=== PATIENT | female | born 1950 | race American Indian/Alaskan Native ===

== ENCOUNTER → 2020-08-31 12:51 | Outpatient (BNVA) | payer MEDICARE, SELFPAY | PROVIDERS: PCP Internal Medicine; Referring Provider Internal Medicine; Visit Provider Internal Medicine | DX: I25.10 Atherosclerotic heart disease of native coronary artery without angina pectoris (principal); Z95.5 Presence of coronary angioplasty implant and graft; Z79.02 Long term (current) use of antithrombotics/antiplatelets; Z79.82 Long term (current) use of aspirin; Z79.899 Other long term (current) drug therapy | CPT/HCPCS: 99212 ==

== ENCOUNTER 2020-09-03 14:42 | Outpatient (REF) | payer MEDICARE, SELFPAY ==
[2020-09-03 16:12] LABS: Alanine Aminotransferase 17 U/L (0-31); Albumin Level 4.4 g/dL (3.5-5.0); Alkaline Phosphatase 63 U/L (39-117); Aspartate Amino Transferase 19 U/L (5-31); Bilirubin Direct 0.2 mg/dL (0.0-0.5); Bilirubin Total 0.2 mg/dL (0.0-1.0); Cholesterol 161 mg/dL; HDL Cholesterol 83 mg/dL; LDL Cholesterol Calculated 68 mg/dl; Total Protein 6.8 g/dL (6.5-8.0); Triglycerides 54 mg/dL
== END 2020-09-03 14:43 | disposition home or self-care (01) ==
LOC: HO.LAB 14:42
PROVIDERS: PCP Internal Medicine; Visit Provider Internal Medicine
DX: E78.5 Hyperlipidemia, unspecified (principal); I25.10 Atherosclerotic heart disease of native coronary artery without angina pectoris
CPT/HCPCS: 80061; 80076

== ENCOUNTER → 2021-02-22 11:08 | Outpatient (BNVA) | payer MEDICARE, SELFPAY | PROVIDERS: PCP Internal Medicine; Visit Provider Internal Medicine | DX: I25.10 Atherosclerotic heart disease of native coronary artery without angina pectoris (principal); E78.5 Hyperlipidemia, unspecified; Z95.5 Presence of coronary angioplasty implant and graft | CPT/HCPCS: 99212 ==

== ENCOUNTER → 2021-08-30 11:34 | Outpatient (BNVA) | payer MEDICARE, SELFPAY | PROVIDERS: PCP Internal Medicine; Visit Provider Internal Medicine | DX: I25.10 Atherosclerotic heart disease of native coronary artery without angina pectoris (principal); E78.5 Hyperlipidemia, unspecified; Z95.5 Presence of coronary angioplasty implant and graft | CPT/HCPCS: 93005; 99212 ==

== ENCOUNTER 2021-09-15 12:23 | Outpatient (REF) | payer MEDICARE, SELFPAY | END 2021-09-15 12:24 | disposition home or self-care (01) | LOC: HO.LAB 12:23 | PROVIDERS: PCP Internal Medicine; Visit Provider Internal Medicine | DX: Z20.822 Contact with and (suspected) exposure to COVID-19 (principal) | CPT/HCPCS: C9803; U0003; U0005 ==

== ENCOUNTER 2022-07-10 13:57 | Emergency (ER) | payer MEDICARE, SELFPAY ==
--- NOTE | ~2022-07-10 | XR_ITS ---
EXAMINATION: XR FOOT, RIGHT CLINICAL INFORMATION: Injury, pain COMPARISON: None TECHNIQUE: AP, lateral, and oblique views of the right foot. FINDINGS: The bones and soft tissues are normal. No fracture. Alignment is anatomic. Joint spaces are maintained. XR/XR foot RT 2V IMPRESSION: Normal right foot.
[2022-07-10 16:30] VITALS: BP 151/43; PULSE 72; RESP 18; TEMP 36.7; O2SAT 97; BMI 19.7
--- NOTE | 2022-07-10 17:43 | ED_ITS ---
HPI - Extremity Injury (Lower) General Chief Complaint: Extremity Injury, Lower Stated Complaint: r foot inj at home Time Seen by Provider: 07/10/22 14:43 Source: patient and family Mode of arrival: ambulatory Limitations: no limitations History of Present Illness HPI Narrative: 71-year-old female came in for evaluation of right foot pain after she dropped a can of soup on her right leg. Patient felt fine initially then later started to have pain over the right foot still able to ambulate with limping. Related Data Home Medications Medication Instructions Recorded Confirmed clonazepam 1 mg tablet mg PO 08/31/20 08/30/21 fluticasone propionate 110 inhalation 08/31/20 08/30/21 mcg/actuation HFA aerosol inhaler liothyronine 5 mcg tablet mcg PO 08/31/20 08/30/21 lubiprostone 24 mcg capsule 24 mcg PO BID 08/31/20 08/30/21 misoprostol 200 mcg tablet 400 mcg PO QID 08/31/20 08/30/21 thyroid (pork) 15 mg tablet 15 mg PO QAM 08/31/20 08/30/21 thyroid (pork) 30 mg tablet 0 mg PO 08/31/20 08/30/21 topiramate 200 mg tablet 200 mg PO BID 08/31/20 08/30/21 topiramate 50 mg tablet 50 mg PO BID 08/31/20 08/30/21 venlafaxine 150 mg 150 mg PO DAILY 08/31/20 08/30/21 capsule,extended release 24 hr venlafaxine 75 mg capsule,extended 75 mg PO DAILY 08/31/20 08/30/21 release 24 hr Previous Rx's Medication Instructions Recorded aspirin 81 mg tablet,delayed 81 mg PO DAILY #90 tabs 08/30/21 release (Enteric Coated Aspirin) rosuvastatin 20 mg tablet 20 mg PO DAILY #90 tabs 03/06/22 Allergies Allergy/AdvReac Type Severity Reaction Status Date / Time naproxen AdvReac Unknown Does not Verified 08/30/21 11:39 feel well Review of Systems Review of Systems: All other systems are reviewed and are negative Constitutional: Reports as per HPI and Reports no additional constitutional complaints Eyes: Reports as per HPI and Reports no additional eye complaints Reports system reviewed and no additional complaints, except as documented Cardiovascular: Reports as per HPI and Reports no additional cardiovascular complaints Respiratory: Reports as per HPI and Reports no additional respiratory complaints Gastrointestinal: Reports as per HPI and Reports no additional gastrointestinal complaints Genitourinary: Reports no additional female genitourinary complaints Musculoskeletal: Reports no additional musculoskeletal complaints Skin/Breast: Reports system reviewed and no additional complaints, except as docu Psychiatric: Reports no additional psychiatric complaints Endocrine: Reports no additional endocrine complaints Hematologic/Lymphatic: Reports no additional hematologic/lymphatic complaints Allergic/Immunologic: Reports no additional allergic/immunologic complaints Reports system reviewed and no additional complaints, except as documented and Reports Abnormal speech present PENDING SALE TO [facility] Past Medical History Medical History Atherosclerotic cardiovascular disease Other and unspecified hyperlipidemia Presence of stent in LAD coronary artery Surgical History History of cardiac catheterization (~05/24/20) History of fusion of cervical spine History of hand surgery History of partial hysterectomy History of total left hip replacement Family History Family History Father History of myocardial infarction Emphysema of lung Mother Emphysema of lung History of myocardial infarction Social History Social History Patient Tobacco Use Status: Former Tobacco user Quit Date: 29 yrs ago Years Smoked: 22 Advance Directives: Yes Advance Directives on File: Yes Advance Directives Date on File: 07/16/20 Physical Exam Vital Signs: Vital Signs: Last Vital Signs Temp 98.1 F 07/10/22 16:30 Pulse 72 07/10/22 16:30 Resp 18 07/10/22 16:30 BP 151/43 H 07/10/22 16:30 Pulse Ox 97 07/10/22 16:30 O2 Del Method 07/10/22 16:30 BMI result Body Mass Index 19.7 Vital signs have been reviewed as appeared to be correct. Blood pressure normal. Heart rate normal. Respiration rate normal. Temperature normal. Oxygen saturation normal. Appearance: Alert. Oriented X3. No acute distress. Head: Normal external exam. Normocephalic. Atraumatic. No Kline signs noted. No raccoon eyes noted Eyes: PERRLA. EOMI. Conjunctiva and sclera normal. Eyelids normal. ENT: TM's Normal. Pharynx normal. Uvula midline. Moist mucous membranes. No trismus noted. No drooling noted. No muffled voice noted. Neck: Normal inspection. Neck supple. FROM. No adenopathy. Thyroid Normal. No meningeal signs. No neck mass noted. CVS: Normal heart rate and rhythm. Heart sound normal. No murmurs noted. Pulses normal throughout. Respiratory: No respiratory distress. Painless inspiration. Breath sounds normal. No wheezes/rales/rhonchi noted. Chest nontender. No accessory muscle usage noted or decreased air movement noted. Abdomen: Soft and nontender. Bowel sounds normal in all 4 quadrants. No distention noted. No organomegaly noted. No visible injury noted. Back: No CVA tenderness. Full range of motion noted. Skin: Skin warm and dry. Normal skin color. Normal skin turgor. No rashes/lesions/lacerations noted. Extremities: Right foot exam, no deformity, no step-off, normal neurovascular exam with intact sensation. Neuro: Oriented X 3. Cranial nerve exam: II-XII are grossly intact No motor deficit. No sensory deficit. Reflexes normal. Course Course Course Narrative: Right foot contusion. Elevation, ice, NSAIDs. MDM - Extremity Injury (Lower) Imaging Data Right foot x-ray: Attestation: I personally reviewed and interpreted this imaging study as follows: Radiologist's impression: Normal right foot Discharge Plan Discharge Clinical Impression: Contusion of foot, right Patient Disposition: Home, Self-Care Instructions: Foot Contusion (ED) Additional Instructions: Apply ice to the right foot, elevate the right foot, use the Voltaren cream, roosevelt e ibuprofen 200 mg [id number] medication every 6 hours if needed for pain. Prescriptions: No Action rosuvastatin 20 mg tablet 20 mg PO DAILY Qty: 90 3RF venlafaxine 150 mg capsule,extended release 24hr 150 mg PO DAILY venlafaxine 75 mg capsule,extended release 24hr 75 mg PO DAILY clonazepam 1 mg tablet PO topiramate 50 mg tablet 50 mg PO BID Flovent HFA 110 mcg/actuation HFA aerosol inhaler inhalation thyroid (pork) 30 mg tablet 0 mg PO Amitiza 24 mcg capsule 24 mcg PO BID misoprostol 200 mcg tablet 400 mcg PO QID liothyronine 5 mcg tablet PO topiramate 200 mg tablet 200 mg PO BID thyroid (pork) 15 mg tablet 15 mg PO QAM aspirin [Enteric Coated Aspirin] 81 mg tablet,delayed release (DR/EC) 81 mg PO DAILY Qty: 90 4RF Referrals: Hilton Rossi MD [Primary Care Provider] -
== END 2022-07-10 17:54 | disposition home or self-care (01) ==
PROVIDERS: Emergency Provider Emergency Medicine; PCP Internal Medicine
DX: S90.31XA Contusion of right foot, initial encounter (principal); W20.8XXA Other cause of strike by thrown, projected or falling object, initial encounter; E78.5 Hyperlipidemia, unspecified; Y93.89 Activity, other specified; Y92.010 Kitchen of single-family (private) house as the place of occurrence of the external cause; Y99.9 Unspecified external cause status; Z79.02 Long term (current) use of antithrombotics/antiplatelets; Z95.5 Presence of coronary angioplasty implant and graft
CPT/HCPCS: 73620; 99282; 99283

== ENCOUNTER → 2022-08-31 11:01 | Outpatient (BNVA) | payer MEDICARE, SELFPAY | PROVIDERS: PCP Internal Medicine; Visit Provider Internal Medicine | DX: I25.10 Atherosclerotic heart disease of native coronary artery without angina pectoris (principal); E78.5 Hyperlipidemia, unspecified; Z95.5 Presence of coronary angioplasty implant and graft | CPT/HCPCS: 93005; 99212 ==

== ENCOUNTER 2022-10-02 15:25 | Outpatient (REF) | payer MEDICARE, SELFPAY ==
[2022-10-02 16:21] LABS: Blood Urea Nitrogen 17 mg/dL (9-16); Estimated Glomerular Filt Rate 48
== END 2022-10-02 15:26 | disposition home or self-care (01) ==
LOC: HO.LAB 15:25
PROVIDERS: PCP Internal Medicine; Visit Provider Otolaryngology
DX: Z01.812 Encounter for preprocedural laboratory examination (principal); H91.20 Sudden idiopathic hearing loss, unspecified ear
CPT/HCPCS: 36415; 82565; 84520

== ENCOUNTER 2022-10-16 14:13 | Outpatient (REF) | payer MEDICARE, SELFPAY ==
--- NOTE | ~2022-10-16 | MR_ITS ---
MR BRAIN WITHOUT AND WITH IV CONTRAST CLINICAL INFORMATION: Sudden hearing loss and tinnitus of the left ear. Acoustic neuroma. COMPARISON: CTA head and neck 03/28/2017. TECHNIQUE: Multiplanar, multisequence MRI of the brain was obtained before and after the intravenous administration of 5 mL Gadavist. FINDINGS: The inner ear structures including the cochlea, vestibules, and semicircular canals exhibit preserved CSF signal intensity with no pathologic enhancement. The vestibular aqueducts are not enlarged. Cranial nerves VII and VIII complexes are normal in morphology. No enhancing CP angle/retrocochlear lesion. There is no pathologic intracranial enhancement. 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 No acute infarct on diffusion-weighted imaging. No intracranial hemorrhage on the gradient series. No hydrocephalus, extra-axial surface collection, or herniation. The midline intracranial structures are normal. Cerebellar tonsils are normally positioned. Craniocervical junction is normal. Osseous marrow signal intensity remains homogeneous. No significant soft tissue abnormality is appreciated. Partially imaged ACDF changes within the upper cervical spine. MR/MR head/brain wo/w con IMPRESSION: - No retrocochlear pathology. No acute findings. - There is mild to moderate chronic microangiopathy.
== END 2022-10-16 14:14 | disposition home or self-care (01) ==
LOC: HO.MRI 14:13
PROVIDERS: Visit Provider Otolaryngology
DX: D33.3 Benign neoplasm of cranial nerves (principal); H91.22 Sudden idiopathic hearing loss, left ear; H93.12 Tinnitus, left ear
CPT/HCPCS: 70553; A9585

== ENCOUNTER 2023-09-05 11:12 | Outpatient (AMB) | payer MEDICARE, SELFPAY ==
--- NOTE | 2023-09-05 11:25 | A.OFFVIS_ITS ---
Intake Vital Signs 09/05/23 11:27 Height 5 ft 4 in Weight 114 lb 10.246 oz BMI 19.7 BP 130/70 Blood Pressure Location Lt brachial Position Sitting Pulse 79 Intake Visit Reasons: 1 year follow up Intake Note: 1 year follow up w/ EKG Communications Director Required: No Accompanied by: Self / Same As Patient Allergies naproxen Adverse Reaction (Unknown, Verified 09/05/23 11:25) Does not feel well Medication List - Last Reconciled 09/05/23 by Raghu Scott MD aspirin (Enteric Coated Aspirin) 81 mg PO DAILY clonazepam 1 mg PO fluticasone propionate 110 mcg/actuation inhalation liothyronine 5 mcg PO lubiprostone 24 mcg PO BID rosuvastatin 20 mg PO DAILY thyroid (pork) 15 mg PO QAM thyroid (pork) 30 mg PO topiramate 50 mg PO BID topiramate 200 mg PO BID venlafaxine ER 150 mg PO DAILY venlafaxine ER 75 mg PO DAILY HPI HPI Comments History of Present Illness Details Maggy returns for follow-up regarding coronary disease. In 2019, she was admitted for chest discomfort that felt like heaviness in the front of the chest. EKG showed T inversions across the anterior leads, but troponins were unremarkable. Then underwent cardiac catheterization showing significant proximal LAD disease. Underwent stenting of the same. Strong family history of cardiac disease. Her sister has had bypass surgery in her 40s. Overall, no new issues. No anginal-type symptoms or in fact anything cardiac sounding. [facility] Medical History Atherosclerotic cardiovascular disease Other and unspecified hyperlipidemia Presence of stent in LAD coronary artery Surgical History History of cardiac catheterization (~05/24/20) History of total left hip replacement History of fusion of cervical spine History of partial hysterectomy History of hand surgery Family History Father History of myocardial infarction Emphysema of lung Mother Emphysema of lung History of myocardial infarction Patient Tobacco Use Status: Former Tobacco user Quit Date: 29 yrs ago Years Smoked: 22 Advance Directives Date on File: 07/16/20 Review of Systems Const Denies weakness ENT Denies dizziness Card Denies chest pain, Denies chest pain with activity, Denies syncope, Denies rapid heart rate, Denies pedal edema, Denies edema, Denies leg edema, Denies lightheadedness, Denies palpitations, Denies dyspnea, Denies dyspnea on exertion and Denies orthopnea Resp Denies cough, Denies dyspnea and Denies dyspnea on exertion GI Denies hematochezia and Denies change in stool character Musc Denies abnormal gait, Denies muscle cramps, Denies muscle weakness, Denies numbness, Denies radiating pain into limb and Denies tingling Neuro Denies abnormal gait, Denies dizziness, Denies syncope, Denies numbness, Denies tingling and Denies weakness Endo Denies palpitations Physical Exam Vital Signs: Last Vital Signs Pulse 79 09/05/23 11:27 BP 130/70 09/05/23 11:27 BMI result Body Mass Index 19.7 Const General: comfortable and no acute distress Orientation/consciousness: patient oriented x3 HEENT Other: Unremarkable Head: Yes normal to inspection Neck Neck: Yes normal visual inspection Chest Chest palpation & inspection: normal inspection of the chest Resp Auscultation: clear to auscultation bilaterally Cardio Palpation: normal PMI Heart sounds: S1 normal heart sound present, S2 normal heart sound present, no gallops, no murmurs and no rubs GI Palpation (GI): Soft to palpation Back/Spine/Pelvis Other: unremarkable Skin General skin exam: no rashes or lesions noted Neuro General: patient oriented x3 Extrem General: Yes normal to inspection Psych Mental Status: mental status grossly normal Office Procedures EKG Details: EKG with sinus rhythm at 79/Min; cannot exclude old septal infarct but could be from body habitus; nonspecific ST-T changes; [place] [id number], Complete Assessment & Plan Assessment & Plan (1) Atherosclerotic cardiovascular disease: Code(s): I25.10 - Atherosclerotic heart disease of [place] coronary artery without angina pectoris (2) Presence of stent in LAD coronary artery: Code(s): Z95.5 - Presence of coronary angioplasty implant and graft (3) Other and unspecified hyperlipidemia: Code(s): E78.5 - Hyperlipidemia, unspecified Plan Cardiac catheterization from 05/2020 showed 90% stenosis in the proximal LAD, s/p WANG. Continue aspirin indefinitely. Continue statins. Last couple of LDLs are in the 70s and 90s. Triglycerides 80s and 90s. Coding Level of Care Code Est Pt Level 4 (11550) Diagnoses Atherosclerotic cardiovascular disease I25.10 Presence of stent in LAD coronary artery Z95.5 Other and unspecified hyperlipidemia E78.5 CPT Codes EKG - CPT: 79869-[id number], Complete ([id number])
[2023-09-05 11:27] VITALS: BP 130/70; PULSE 79; BMI 19.7
== END 2023-09-05 11:43 | disposition home or self-care (01) ==
PROVIDERS: Visit Provider Internal Medicine
DX: I25.10 Atherosclerotic heart disease of native coronary artery without angina pectoris (principal); Z95.5 Presence of coronary angioplasty implant and graft; E78.5 Hyperlipidemia, unspecified
CPT/HCPCS: 93010; 99214

== ENCOUNTER → 2023-09-05 11:12 | Outpatient (BNVA) | payer MEDICARE, SELFPAY | PROVIDERS: Visit Provider Internal Medicine | DX: I25.10 Atherosclerotic heart disease of native coronary artery without angina pectoris (principal); I10 Essential (primary) hypertension; E78.5 Hyperlipidemia, unspecified; Z98.890 Other specified postprocedural states; Z95.5 Presence of coronary angioplasty implant and graft | CPT/HCPCS: 93005; 99212 ==

== ENCOUNTER 2024-09-01 10:35 | Outpatient (AMB) | payer MEDICARE, SELFPAY ==
[2024-09-01 10:50] VITALS: BP 120/60; PULSE 69; BMI 20.4
--- NOTE | 2024-09-01 10:50 | A.OFFVIS_ITS ---
Vital Signs 09/01/24 10:50 Height 5 ft 4 in Weight 119 lb 0.794 oz BMI 20.4 BP 120/60 Blood Pressure Location Lt brachial Position Sitting Pulse 69 Pulse Source Monitor Intake Visit Reasons: 1 yr fu Allergies naproxen Adverse Reaction (Unknown, Verified 09/05/23 11:25) Does not feel well Medication List - Last Reconciled 09/01/24 by Raghu Scott MD aspirin (Enteric Coated Aspirin) 81 mg PO DAILY clonazepam 1 mg PO fluticasone propionate 110 mcg/actuation inhalation liothyronine 5 mcg PO lubiprostone 24 mcg PO BID rosuvastatin 20 mg PO DAILY thyroid (pork) 15 mg PO QAM thyroid (pork) 30 mg PO topiramate 50 mg PO BID topiramate 200 mg PO BID venlafaxine ER 150 mg PO DAILY venlafaxine ER 75 mg PO DAILY HPI Comments Details: Maggy returns for follow-up regarding coronary disease. In 2019, she was admitted for chest discomfort that felt like heaviness in the front of the chest. EKG showed T inversions across the anterior leads, but troponins were unremarkable. Then underwent cardiac catheterization showing sig nificant proximal LAD disease. Underwent stenting of the same. Strong family history of cardiac disease. Her sister has had bypass surgery in her 40s. She states she is noticing some shortness of breath with activity but otherwise no angina or anything else. It seems that she gets lung CT scans because of lung nodule and that had reported coronary calcification and she is worried about that. [facility] Medical History Atherosclerotic cardiovascular disease Other and unspecified hyperlipidemia Presence of stent in LAD coronary artery Surgical History History of cardiac catheterization (~05/24/20) History of total left hip replacement History of fusion of cervical spine History of partial hysterectomy History of hand surgery Family History (Updated 09/01/24 @ 11:08 by Linda Gonzalez) Father History of myocardial infarction Emphysema of lung Heart attack Mother Emphysema of lung History of myocardial infarction Heart attack Social History Patient Tobacco Use Status: Former Tobacco user Years Smoked: 22 Advance Directives Date on File: 07/16/20 Review of Systems Const Denies weakness ENT Denies dizziness Card Denies chest pain, Denies chest pain with activity, Denies syncope, Denies rapid heart rate, Denies pedal edema, Denies edema, Denies leg edema, Denies lightheadedness, Denies palpitations, Denies dyspnea, Denies dyspnea on exertion and Denies orthopnea Resp Denies cough, Denies dyspnea and Denies dyspnea on exertion GI Denies hematochezia and Denies change in stool character Musc Denies abnormal gait, Denies muscle cramps, Denies muscle weakness, Denies numbness, Denies radiating pain into limb and Denies tingling Neuro Denies abnormal gait, Denies dizziness, Denies syncope, Denies numbness, Denies tingling and Denies weakness Endo Denies palpitations Physical Exam Vital Signs: Last Vital Signs Pulse 69 09/01/24 10:50 BP 120/60 09/01/24 10:50 BMI result Body Mass Index 20.4 Const General: comfortable and no acute distress Orientation/consciousness: patient oriented x3 HEENT Other: Unremarkable Head: Yes normal to inspection Neck Neck: Yes normal visual inspection Chest Chest palpation & inspection: normal inspection of the chest Resp Auscultation: clear to auscultation bilaterally Cardio Palpation: normal PMI Heart sounds: S1 normal heart sound present, S2 normal heart sound present, no gallops, no murmurs and no rubs GI Palpation (GI): Soft to palpation Back/Spine/Pelvis Other: unremarkable Skin General skin exam: no rashes or lesions noted Neuro General: patient oriented x3 Extrem General: Yes normal to inspection Psych Mental Status: mental status grossly normal Office Procedures EKG Details: EKG with underlying sinus rhythm at 69/Min; can not exclude old septal infarct but could be from body habitus; nonspecific ST-T changes in the inferior and anterolateral leads. Overall, similar to prior. [id number], Complete Assessment & Plan Assessment & Plan (1) Atherosclerotic cardiovascular disease: Code(s): I25.10 - Atherosclerotic heart disease of [place] coronary artery without angina pectoris Category: Medical (2) Presence of stent in LAD coronary artery: Code(s): Z95.5 - Presence of coronary angioplasty implant and graft Category: Medical (3) Other and unspecified hyperlipidemia: Code(s): E78.5 - Hyperlipidemia, unspecified Category: Medical Plan Cardiac catheterization from 05/2020 showed 90% stenosis in the proximal LAD, s/p WANG. In the lung CT scan, mention of severe coronary artery calcification but suspect some of this is probably from a coronary stenting. Clinically, she does not have any clear-cut angina. Describes some shortness of breath which could be rather Pulmonary. We will plan on an echocardiogram and stress test for further evaluation. Reassured her as much about this CT scan finding towards satisfaction. With regard to medications, continue aspirin. She remains on statins. Check lipids. Previously, lipids in the 70s and 90s. Triglycerides, 80s and 90s. Follow-up in 3 months. Orders: Orders CA echo transthoracic complete Today I25.10 - Atherosclerotic heart disease of [place] coronary artery without angina pectoris Lipid Panel Today E78.5 - Hyperlipidemia, unspecified, I25.10 - Atherosclerotic heart disease of [place] coronary artery without angina pectoris Liver Panel Today I25.10 - Atherosclerotic heart disease of [place] coronary artery without angina pectoris CA echo stress exercise Today I25.10 - Atherosclerotic heart disease of [place] coronary artery without angina pectoris Coding Level of Care Code Est Pt Level 4 (97537) Diagnoses Atherosclerotic cardiovascular disease I25.10 Presence of stent in LAD coronary artery Z95.5 Other and unspecified hyperlipidemia E78.5 CPT Codes EKG - CPT: 63892-[id number], Complete ([id number])
== END 2024-09-01 11:29 | disposition home or self-care (01) ==
PROVIDERS: PCP Internal Medicine; Visit Provider Internal Medicine
DX: I25.10 Atherosclerotic heart disease of native coronary artery without angina pectoris (principal); Z95.5 Presence of coronary angioplasty implant and graft; E78.5 Hyperlipidemia, unspecified
CPT/HCPCS: 93010; 99214

== ENCOUNTER → 2024-09-01 10:35 | Outpatient (BNVA) | payer MEDICARE, SELFPAY | PROVIDERS: PCP Internal Medicine; Visit Provider Internal Medicine | DX: I25.10 Atherosclerotic heart disease of native coronary artery without angina pectoris (principal); E78.5 Hyperlipidemia, unspecified; Z95.5 Presence of coronary angioplasty implant and graft; Z87.891 Personal history of nicotine dependence | CPT/HCPCS: 93005; 99212 ==

== ENCOUNTER → 2024-10-28 11:04 | Outpatient (REF) | payer MEDICARE, SELFPAY ==
--- NOTE | 2024-10-28 11:07 | CA_ITS ---
Acquisition Time: 2024-10-28 11:33:35 Total Exercise Time: 00:07:10 Test Indications: CAD Medications: SEE H&P Protocol: TRISTEN Max HR: 141 BPM 94% of Pred: 149 BPM Max BP: 170/60 mmHG Max Work Load: 8.8 METS Exercise Stress Test with exercise 7 mins 10 secs of Tristen Protocol, achieving 87% MPHR, with reports of 6/10 chest heaviness with mild SOB that improved slowly in recovery, with isolated PACs, with normotensive response to exercise. With horizontal ST depression inferiorly and anterolaterally meeting criteria for ischemia. Echo images were obtained by tech at rest and post peak exercise. Definity contrast utilized. ST segments improved in recovery. Pt feeling back to baseline. Test reviewed with Dr. Scott. Referred By: Raghu Scott Electronically Signed By: Elder Marquez
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
== END ==
LOC: HO.CARD 11:04
PROVIDERS: PCP Internal Medicine; Visit Provider Internal Medicine
DX: I25.10 Atherosclerotic heart disease of native coronary artery without angina pectoris (principal)
CPT/HCPCS: 93350; Q9957

== ENCOUNTER → 2024-10-28 11:07 | Outpatient (BNV) | payer MEDICARE, SELFPAY | PROVIDERS: PCP Internal Medicine | DX: I24.9 Acute ischemic heart disease, unspecified (principal); I49.1 Atrial premature depolarization | CPT/HCPCS: 93016; 93018; 93350; 93352 ==

== ENCOUNTER 2024-11-17 15:14 | Outpatient (REF) | payer MEDICARE, SELFPAY ==
[2024-11-17 15:42] LABS: Hematocrit 40.3 % (37.0-47.0); Hemoglobin 13.3 g/dl (12.0-16.0); Mean Corpuscular Hemoglobin 29.9 pg (27.0-33.0); Mean Corpuscular Volume 90.6 fL (80.0-98.0); Mean Platelet Volume 12.1 fL (9.4-12.3); Platelet Count 189 X10*3/uL (160-400); Red Blood Count 4.45 X10*6/uL (4.20-5.50); White Blood Count 5.6 X10*3/uL (4.8-10.8)
[2024-11-17 15:49] LABS: INTERNATIONAL NORM RATIO 0.9 (0.9-1.1); Prothrombin Time 10.7 SEC (10.9-12.4)
[2024-11-17 16:36] LABS: Alanine Aminotransferase 18 U/L (0-31); Albumin Level 4.1 g/dL (3.5-5.0); Alkaline Phosphatase 56 U/L (39-117); Anion Gap 8 (12-20); Aspartate Amino Transferase 21 U/L (5-31); Bilirubin Direct < 0.2 mg/dL (0.0-0.5); Bilirubin Total 0.2 mg/dL (0.0-1.0); Blood Urea Nitrogen 18 mg/dL (9-16); Calcium 9.1 mg/dL (8.4-10.2); Carbon Dioxide 22 mmol/L (22-29); Chloride 114 mmol/L (96-108); Cholesterol 178 mg/dL (<200); Estimated Glomerular Filt Rate > 60; Glucose Random 81 mg/dL (60-115); HDL Cholesterol 76 mg/dL (>40); LDL Cholesterol Calculated 85 mg/dL (<100); Potassium 4.4 mmol/L (3.3-5.1); Sodium 140 mmol/L (135-145); Triglycerides 86 mg/dL (<150)
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
--- OUTSIDE RECORDS SUMMARY | 2024-11-17 16:45 | XMS_ITS | Clinical Summary ---
Author Organization [facility] [address] [facility] Address [address] [place] [address] Phone Care Team Providers Care Echocardiographer Name Role Phone Hilton Rossi MD Primary Care Provider [phone] Allergies Active Allergy Reactions Criticality Noted Date Comments Allerg Xt,D.Farinae-D.Pteronys 09/09/2024 Egg Derived Headache 11/29/2010 Milk Containing Products (Dairy) Diarrhea 11/29/2010 Milk Protein Hydrolysates Other Other 09/09/2024 Medications Medication Sig Dispensed Refills Start Date End Date Status lidocaine/me-preethi/me nthol/camph (CBD-KINGS WITH LIDOCAINE TOP) CBD oil, Refills 0, Maintenance, 11/18/18 11:16:42 EST, Compound 11/18/2018 Active ketoconazole (NIZORAL) 2 % shampoo LATHER INTO AFFECTED AREAS ON SCALP AND FACE EVERY DAY FOR 1-2 WEEKS, THEN USE 2-3 TIMES A WEEK FOR MAINTENANCE Active clonazePAM (KlonoPIN) 1 mg tablet Take 1 tablet (1 mg total) by mouth. 04/21/2024 Active aspirin 81 mg chewable tablet Chew 1 tablet (81 mg total). 05/25/2020 Active naltrexone 1.5 mg capsule 1.5 mg. 01/04/2024 Active lubiprostone (AMITIZA) 24 mcg capsule Take 1 capsule (24 mcg total) by mouth 2 times daily. 05/26/2019 Active liothyronine (CYTOMEL) 5 mcg tablet TAKE 1 TABLET BY MOUTH EVERY MORNING AND 1 EVERY EVENING Active docusate sodium (Colace) 100 mg capsule Take 1 capsule (100 mg total) by mouth. 02/10/2023 Active topiramate (TOPAMAX) 200 mg tablet Take 1 tablet (200 mg total) by mouth 2 (two) times a day. Active venlafaxine (EFFEXOR) 100 mg tablet Take 1 tablet (100 mg total) by mouth 2 (two) times a day. Active venlafaxine (EFFEXOR) 25 mg tablet Take 1 tablet (25 mg total) by mouth 2 (two) times a day. Active rosuvastatin (CRESTOR) 20 mg tablet Take 1 tablet (20 mg total) by mouth 1 (one) time each day. Active miSOPROStoL (CYTOTEC) 200 mcg tabletIndications:I rritable bowel syndrome with both constipation and diarrhea Take 1 tablet (200 mcg total) by mouth 4 (four) times a day. 120 each 5 09/10/2024 03/09/2025 Active Active Problems Problem Noted Date Diagnosed Date Rectal prolapse 09/04/2024 Irritable bowel syndrome (IBS) 09/04/2024 Hx of colonic polyp 09/04/2024 Hyperlipidemia Hypothyroid Osteoarthritis Encounters Date Type Department Care Team Description 09/10/2024 Telephone Gastroenterology - [address] [phone] [place] 09/09/2024 2:45 PM EST Office Visit Gastroenterology - [address] [phone] Murali Boyd MD Rectal prolapse (Primary Dx); Irritable bowel syndrome with both constipation and diarrhea; Hx of colonic polyp from Last 3 Months Surgical History Surgery Date Site/Laterality Comments HYSTERECTOMY DELORME PROCEDURE FOR RECTAL PROLAPSE Medical History Medical History Date Comments Hyperlipidemia Hypothyroid Osteoarthritis Social History Tobacco Use Types Packs/Day Years Used Date Smoking Tobacco: Former Cigarettes Tobacco Cessation:Counseling Given: Not Answered Alcohol Use Standard Drinks/Week Comments Not Currently 0 (1 standard drink = 0.6 oz pur e alcohol) none Sex and Gender Information Value Date Recorded Sex Assigned at Not on file Gender Identity Not on file Sexual Orientation Not on file Job Start Date Occupation Industry Not on file Not on file Not on file Obstetrics History Last Filed Vital Signs Vital Sign Reading Time Taken Comments Blood Pressure - - Pulse - - Temperature - - Respiratory Rate - - Oxygen Saturation - - Inhaled Oxygen Concentration - - Weight 53.1 kg (117 lb) 09/09/2024 2:31 PM EST Height 162.6 cm (5' 4 ) 09/09/2024 2:31 PM EST Body Mass Index 20.08 09/09/2024 2:31 PM EST Plan of Treatment Health Maintenance Due Date Last Done Comments Breast Cancer Screening 1950 Hepatitis A Vaccines (1 of 2 - Risk 2-dose series) 1971 Cholesterol Screening (Lipid Panel) 11/13/2023 Colorectal Cancer Screening: Colonoscopy 11/13/2023 Depression Screening 11/13/2023 Falls Risk Assessment 11/13/2023 Hepatitis C Screening 11/13/2023 Medicare Annual Wellness Visit 11/13/2023 Osteoporosis Screening (Bone Density Screening) 11/13/2023 Social Influencers of Health Screening 11/13/2023 COVID-19 Vaccine ( season) 2024 08/26/2022, 05/30/2022, 09/27/2021, Additional history exists Influenza Vaccine (#1) 2024 , 08/12/2022, 07/05/2021, Additional history exists Hypertension/CHF/CAD Annual BMP Blood Test 09/10/2024 DTaP,Tdap,and Td Vaccines (2 - Td or Tdap) 07/13/2027 07/13/2017 Zoster Vaccines Completed 06/16/2019, 08/16, 05/19/2018, Additional history exists Pneumococcal Vaccine: 65+ Years Completed 06/11/2020, 05/19/2018, 07/13/2017, Additional history exists RSV Immunization Patients 60+ Years Old Completed 03/01/2024 HIB Vaccines Aged Out No longer eligi ble based on patient's age to complete this topic HPV Vaccines Aged Out No longer eligi ble based on patient's age to complete this topic Hepatitis B Vaccines Aged Out No long er eligible based on patient's age to complete this topic IPV Vaccines Aged Out No longer eligi ble based on patient's age to complete this topic MMR Vaccines Aged Out No longer eligi ble based on patient's age to complete this topic Meningococcal ACWY Vaccine Aged Out N o longer eligible based on patient's age to complete this topic RSV Immunization Patients Under 20 months Aged Out No longer eligible based on patient's age to complete this topic Varicella Vaccines Aged Out No longer eligible based on patient's age to complete this topic Care Teams Echocardiographer Relationship Specialty Start Date End Date Hilton Rossi MD [address] [place] [place] [phone] PCP - General Internal Medicine 08/07/24
== END 2024-11-17 15:15 | disposition home or self-care (01) ==
LOC: HO.LAB 15:14
PROVIDERS: PCP Internal Medicine; Visit Provider Internal Medicine
DX: R94.39 Abnormal result of other cardiovascular function study (principal); E78.5 Hyperlipidemia, unspecified; I25.10 Atherosclerotic heart disease of native coronary artery without angina pectoris
CPT/HCPCS: 36415; 80048; 80061; 80076; 85027; 85610

== ENCOUNTER 2024-12-23 12:49 | Outpatient (AMB) | payer MEDICARE, SELFPAY ==
--- NOTE | 2024-12-23 13:06 | A.OFFVIS_ITS ---
Vital Signs 12/23/24 13:10 Height 5 ft 4 in Weight 114 lb 10.246 oz BMI 19.7 BP 118/58 L Blood Pressure Location Lt brachial Position Sitting Pulse 70 Pulse Source Pulse Oximeter Intake Visit Reasons: 3m/ stress echo/ echo Allergies naproxen Adverse Reaction (Unknown, Verified 09/05/23 11:25) Does not feel well Medication List - Last Reconciled 12/23/24 by Raghu Scott MD aspirin (Enteric Coated Aspirin) 81 mg PO DAILY clonazepam 1 mg PO fluticasone propionate 110 mcg/actuation inhalation liothyronine 5 mcg PO lubiprostone 24 mcg PO BID rosuvastatin 20 mg PO DAILY thyroid (pork) 15 mg PO QAM ticagrelor (Brilinta) 90 mg PO BID topiramate 50 mg PO BID topiramate 200 mg PO BID venlafaxine ER 150 mg PO DAILY venlafaxine ER 75 mg PO DAILY HPI Comments Details: Maggy returns for follow-up regarding coronary disease. In 2019, she was admitted for chest discomfort that felt like heaviness in the front of the chest. EKG showed T inversions across the anterior leads, but troponins were unremarkable. Then underwent cardiac catheterization showing significant proximal LAD disease. Underwent stenting of the same. Strong family history of cardiac disease. Her sister has had bypass surgery in her 40s. In the recent chest CT scan performed for lung nodule, there was reported coronary calcification on the patient was concern. That led to further workup with a stress test which was abnormal and then diagnostic catheterization. She underwent stenting of the ramus. Overall, she feels good. No new concerns. [facility] Medical History Atherosclerotic cardiovascular disease Other and unspecified hyperlipidemia Presence of stent in LAD coronary artery Surgical History History of cardiac catheterization (~05/24/20) History of total left hip replacement History of fusion of cervical spine History of partial hysterectomy History of hand surgery Family History (Updated 09/01/24 @ 11:08 by Linda Gonzalez) Father History of myocardial infarction Emphysema of lung Heart attack Mother Emphysema of lung History of myocardial infarction Heart attack Social History Patient Tobacco Use Status: Former Tobacco user Years Smoked: 22 Advance Directives Date on File: 07/16/20 Review of Systems Const Denies weakness ENT Denies dizziness Card Denies chest pain, Denies chest pain with activity, Denies syncope, Denies rapid heart rate, Denies pedal edema, Denies edema, Denies leg edema, Denies lighthea dedness, Denies palpitations, Denies dyspnea, Denies dyspnea on exertion and Denies orthopnea Resp Denies cough, Denies dyspnea and Denies dyspnea on exertion GI Denies hematochezia and Denies change in stool character Musc Denies abnormal gait, Denies muscle cramps, Denies muscle weakness, Denies numbness, Denies radiating pain into limb and Denies tingling Neuro Denies abnormal gait, Denies dizziness, Denies syncope, Denies numbness, Denies tingling and Denies weakness Endo Denies palpitations Physical Exam Vital Signs: Last Vital Signs Pulse 70 12/23/24 13:10 BP 118/58 L 12/23/24 13:10 BMI result Body Mass Index 19.7 Const General: comfortable and no acute distress Orientation/consciousness: patient oriented x3 HEENT Other: Unremarkable Head: Yes normal to inspection Neck Neck: Yes normal visual inspection Chest Chest palpation & inspection: normal inspection of the chest Resp Auscultation: clear to auscultation bilaterally Cardio Palpation: normal PMI Heart sounds: S1 normal heart sound present, S2 normal heart sound present, no gallops, no murmurs and no rubs GI Palpation (GI): Soft to palpation Back/Spine/Pelvis Other: unremarkable Skin General skin exam: no rashes or lesions noted Neuro General: patient oriented x3 Extrem General: Yes normal to inspection Psych Mental Status: mental status grossly normal Assessment & Plan Assessment & Plan (1) Atherosclerotic cardiovascular disease: Code(s): I25.10 - Atherosclerotic heart disease of sun'aq coronary artery without angina pectoris Category: Medical (2) Other and unspecified hyperlipidemia: Code(s): E78.5 - Hyperlipidemia, unspecified Category: Medical Plan Cardiac catheterization from 05/2020 showed 90% stenosis in the proximal LAD, s/p WANG. Exercise stress echocardiogram was abnormal with chest discomfort, EKG changes and echocardiographic findings. Repeat cardiac catheterization from 11/2024-patent proximal LAD stent with mild InStent restenosis. Severe proximal ramus stenosis, status post PCI. Overall, continue treatment for stable coronary disease. Aspirin long-term. Brilinta for one year. It seems there is some interaction between Brilinta/rosuvastatin. Hence switch to atorvastatin. Cardiac rehabilitation. Follow-up in 4 months. Orders: Orders Cardiac Rehab Today Z95.5 - Presence of coronary angioplasty implant and graft Medications: New atorvastatin (Lipitor) 40 mg PO QPM 90 tabs 3RF ticagrelor (Brilinta) 90 mg PO BID 180 tabs 3RF 90 days Discontinued rosuvastatin Discontinued Reason: Doctor's Order 20 mg PO DAILY 90 tabs 3RF Patient Instructions: I explained to the patient the importance of continuing with Brilinta and the rationale for switching to atorvastatin due to drug interaction concerns. We discussed the minimal risk of statins causing diabetes in context with her family history and emphasized the overall benefit in reducing cardiovascular events. Recommendations were made to start cardiac rehabilitation for structured exercise. She has been instructed to monitor for any new or worsening chest pain and contact our office immediately if they occur. I reassured her regarding her normal blood glucose levels. All questions were addressed, and the patient consented to the outlined plan and changes. - Continue with Brilinta as prescribed. - Switch from rosuvastatin to atorvastatin; take as directed. - Begin cardiac rehabilitation at the designated facility. - Monitor for any chest pain or discomfort and seek medical care immediately if symptoms arise. - Continue taking baby aspirin as previously directed. - Consult us if you have any questions or concerns regarding your medications or symptoms. Coding Level of Care Code Est Pt Level 4 (19910) Diagnoses Atherosclerotic cardiovascular disease I25.10 Other and unspecified hyperlipidemia E78.5
[2024-12-23 13:10] VITALS: BP 118/58; PULSE 70; BMI 19.7
--- OUTSIDE RECORDS SUMMARY | 2024-12-23 15:23 | XMS_ITS | Continuity of Care Document ---
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 [id number] Surgery Radial Cath Approach Discharge Instructions ?? 278 Radial Cath Approach Discharge Instructions ?? Activity Take it easy the rest of the day. Limit your activity on the affected side.?? Act as if your arm is broken for 24 hours. No lifting with affected arm for 24 hours. No pushing or pulling with the affected arm. Do not reach or lift with the affected arm. Do not place excessive pressure on the wrist. ?? Precautions Due to intravenous sedation: It is recommended that someone stay with you for the first night after your procedure. Do not drive or operate hazardous machinery for 24 hours. Do not make legal decisions for 24 hours. Avoid alcohol for 24 hours. Unless directed otherwise, keep yourself hydrated. ?? Dressing/Incision Care You may remove the dressing 24 hours after your procedure. Replace with band aid for an additional 24 hours. You may shower and cleanse the site with soap & water then pat dry. Avoid submersion of site in water x 5 days. Cover the with a clean band aid daily until site is healed. If the band aid becomes soiled, replacewith a clean new one. Do not apply any ointments, lotions, gels or powders to the puncture site. ?? When to contact your doctor If any of the following signs of infection occur: Fever greater than 100 degrees F Increased pain Drainage, redness or warmth at puncture site Tingling of the fingers and hand that last longer than 3 days Slight bubble of blood or bleeding from site: apply manual pressure and notify your doctor ?? Emergency situations: Bleeding from the site that will not stop: apply manual pressure and notify your doctor Profuse bleeding streaming from the puncture site: Apply manual pressure and notify your doctor immediately If your hand becomes bluish, cold to the touch, or painful, notify your doctor immediately or go toEmergency Department. For these emergent situations: If unable to contact your physician, call 911. ?? * Lucie Lopez RN: PERFORM Event Display: Patient Education Leaflets Authored Date: [id number] Procedural Sedation ?? 60750 Procedural Sedation Procedural sedation is medicine to ease discomfort, pain, and anxiety during a procedure. The medicine is often given through an IV (intravenous) line in your arm or hand. In some cases, the medicinemay be taken by mouth or inhaled. While you are under sedation, you will likely be awake. But you may not remember it afterward. Why procedural sedation is used Sedation is used for many types of procedures. The goal is to reduce pain, anxiety, and stressful memories of a procedure. It can help your healthcare provider treat you. For example, having a brokenbone fixed may be easier if you feel relaxed. This type of sedation is used only for short, basic procedures. It's not used for complex surgery. Some procedures that use this type of sedation include: ??? Dental surgery ??? Breast biopsy, to take a sample of breast tissue ??? Endoscopy, to look at gastrointestinal problems ??? Bronchoscopy, tocheck for lung problems ??? Bone or joint realignment, to fix a broken bone or dislocated joint ???Minor foot or skin surgery ??? Electrical cardioversion, to restore a normal heart rhythm ??? Lumbar puncture, to check for neurological disease ?? Risks of procedural sedation Risks and possible side effects include: ??? Headache ??? Nausea and vomiting ??? Bad memories of the procedure ??? Slowed breathing ??? Changes in heart rate and blood pressure (rare) ??? Inhalation of stomach contents into your lungs (rare) Side effects will likely go away shortly after the procedure. Your healthcare team will watch your heart rate and breathing during and after your sedation. This is to help prevent problems. Your own risks may vary. They can be based on your age and your overall health. They also depend onthe type of sedation you are given. Talk with your healthcare provider about the risks that apply most to you. ?? Getting ready for procedural sedation Talk with your provider about how to get ready for your procedure. Tell them about all the medicines you take. This includes wyon-dxv-umoabts medicines, such as ibuprofen. It also includes vitamins, herbs, and other supplements. You may need to stop taking some medicines before the procedure, such as blood thinners and aspirin. If you smoke, you should stop. This is to lessen the chance of a lungproblem. Talk with your provider if you need help to stop smoking. Tell your provider if you: ??? Have had any problems in the past with sedation or anesthesia ??? Have had any recent changes in your health, such as an infection or fever ??? Are or think you could be Also: ??? Follow any directions you are given for not eating or drinking before procedure. ??? Ask a trusted adult to take you home after the procedure. You can???t drive on the day you have sedation. ??? Ask a trusted adult to stay with you for a few hours while you recover. ??? Don't make any important decisions, such as financial or legal, on the day after you have sedation. ??? Follow all other instructions from your provider. ?? During your procedural sedation You may have your procedure in a hospital or a clinic. Sedation is done by a trained healthcare provider. In general, you can expect the following: ??? You will be given medicine through an IV line in your arm or hand. Or you may get a shot or take it by mouth. Or you may inhale it through a mask. ??? If you have medicine through an IV, you may feel the effects very quickly. You will start to feel relaxed and drowsy. ??? During the procedure, your heart rate, breathing, and blood pressure will be closely watched. Your breathing and blood pressure may decrease a little. But you will likely notneed help with your breathing. You may get a little extra oxygen. This is done through a mask or some soft plastic prongs under your nose. ??? You will likely be awake the whole time. If you do fall asleep, you should be easy to wake up, if needed. You should feel little or no pain. ??? When your procedure is over, the sedative medicine will be stopped. ?? After your procedural sedation You will start to feel more awake and aware. But you will likely be drowsy for a while afterward. You will be closely watched as you become more alert. You may have a faint memory of the procedure. Or you may not remember it at all. You should be able to go home within 1 to 2 hours after your procedure. Plan to have a trusted adult stay with you for a few hours. This person should make sure your condition is not getting worse. They should also watch for problems, and keep you safe. You may have side effects, such as nausea, fatigue, or unsteadiness for up to 24 hours. You may also feel lightheaded. Tell your healthcare provider if they continue. Don???t drive or operate dangerous machines during the next 24 hours. Also, don't make any important business or personal decisions. And don't drink any alcohol during the next 24 hours. Take extra care when walking and moving, You may be at a higher risk of falling. Follow any instructions you were given for eating and drinking. Be sure to follow all after-care directions. ?? When to call your healthcare provider Have someone call your healthcare provider right away if any of the following occur: ??? Drowsinessthat gets worse ??? Weakness or dizziness that gets worse ??? Repeated vomiting ??? Your speech is slurred, and others cannot understand you ??? Severe or ongoing pain from the procedure, not relieved by the pain medicine (if prescribed) ??? Fever of 100.4?? F (38??C) or higher, or as advised by your healthcare provider ??? New rash ?? Call 911 Have someone call 911 if any of the following occur: ??? Trouble breathing ??? Trouble swallowing ??? Chest pain ??? Loss of consciousness or you can't be awakened ?? Last Reviewed Date: 2022 ?? [id number] [employer]. All rights reserved. This information is not intended as a substitute for professional medical care. Always follow your healthcare professional's instructions. ?? EKG study * Event Display: ECG 12-Lead Authored Date: Please click on pdf link to open report * Event Display: ECG 12-Lead Authored Date: [id number] Ventricular Rate: 68 BPM Atrial Rate: 68 BPM P-R Interval: 170 ms QRS Duration: 94 ms Q-T Interval: 430 ms QTC Calculation(Bazett): 457 ms P [place]: 55 degrees R [place]: 42 degrees T [place]: 132 degrees Normal sinus rhythm Septal infarct , age undetermined Abnormal ECG When compared with ECG of 27-Nov-2024 08:08, No significant change Confirmed by SANTIAGO ARREAGA MD ([id number]) on 11/27/2024 3:52:16 PM [place]: SANTIAGO ARREAGA MD Patient Care team information Care Team Personnel Name: Jessica MORRIS, Leonardo Position: [facility] RN Member Role: Primary Care Nurse Name: Hilton Patino MD Position: [facility] Physician - Primary Care Member Role: PCP Address: [address] [place] [id number] [employer]: Name: Pauline Rivers MD, Fede Smith Position: [facility] Anesthesiology MD Member Role: [employer] Consult[employer] Physician Address: [address] [place] [phone]- [employer]: Care Team Related Persons Name: MANUEL CHAVEZ Insurance Providers Guarantor name: ANA KATHY [employer] Plan Information #: 1 Payer: MEDICARE PART B OUTPT Member Number: [id number] Policy Number: NA Group Number: [employer] Health Plan Information #: 2 Payer: MEDEX Member Number: [id number] Policy Number: NA Group Number: [id number]
--- OUTSIDE RECORDS SUMMARY | 2024-12-23 15:23 | XMS_ITS | Continuity of Care Document ---
Author Organization [facility] Address [address] [place] [id number] [facility] Name Relationship Address Phone ANA CHAVEZ Personal Relationship Unknown Unav ailable AKTHY, MANUEL Personal Relationship Unknown Mamta vailable KATHY, MANUEL Personal Relationship Unknown Mamta vailable KATHY, MANUEL spouse Unknown Unavailable KATHY, MANUEL Personal Relationship Unknown Mamta vailable KATHY, MANUEL Personal Relationship Unknown Mamta vailable KATHY, MANUEL Personal Relationship Unknown Mamta vailable KATHY, MANUEL Personal Relationship Unknown Mamta vailable KATHY, MANUEL Personal Relationship Unknown Mamta vailable KATHY, AMNUEL Personal Relationship Unknown Mamta vailable KATHY, MANUEL Personal Relationship Unknown Mamta vailable KATHY, MANUEL Personal Relationship Unknown Mamta vailable Care Team Providers Care Support Representative Name Role Phone En[place] GARCIA, Hilton Rodrigues Primary Care Physician [place] [facility] [place]23[place]24 - 11/22/24 [facility] [address] [place] [id number] Attending Physician: Esha Santamaria Admitting Physician: Esha Santamaria Referring Physician: AdmEsha trevizo Encounter Type: Triage Allergies, Adverse Reactions, Alerts [...] influenza virus vaccine, inactivated 07/04/11 Give n [id number] 12y+ bivalent booster vax 08/26/22 Recorded SARS-CoV-2 [...] Note: FLUARIX 3Admin Note: given by randal heller by merle 4Admin Note: GIVEN IN CLINIC [...] Quantity: 4.0 Unit: capsule Repeat number: 1 [place] Thyroid 30 mg oral tablet TAKE ONE TABLET BY MOUTH ONCE DAILY, ALTERNATE WITH ARMOUR 15MG A DAY.. Start Date: 09/02/20 Status: Ordered Repeat number: 1 aspirin 81 mg oral tablet, chewable 81 mg, 1, tablet, By Mouth, Daily, # 30 tablet, Refills 0, Tot. Refills 0, Maintenance, 05/25/20 2:26:00 PM EDT, Route to Pharmacy Electronically, [facility] 3, 163, cm, 05/25/20 8:33:00 EDT, Height, [...] EDT, Route to Pharmacy Electronically, [facility], Partial fillupon patient request if [...] tablet, 1 Refills, Maintenance, 10/09/24 1:12:00 PM [facility], Please ask [...] ear. 3Per chart review meeting GFR criteria 48891; repeat 2024 93045 nl, repeat 2014 6Status post stent LAD May 2020, followed by cardiology [place] 7updated Oswestry Disability Index: 44% ( severe disability ); updated Neck Disability Index: 54%, updated [place] Back Pain Disability Scale: 62; all on 04/21/24 8Updated Oswestry Disability Index: 52% ( severe disability ); updated [place] Back Pain Disability Scale score: 42; both on 05/04/22 9Updated Oswestry Disability Index: 36% ( moderate disability ); updated [place] Back Pain DisabilityScale score: 47 on 02/08/21 10Updated Neck Disability Index: 29: severe disability and [place] Back Pain Disability Scale: 58 on10/28/2019. 11Updated Oswestry Disability Index: 52% severe disability , [place] Back Pain Disability Scale: 72 and Neck Pain Disability Index: 72% crippled on 08/12/18. 12Updated Oswestry Disability Index: 58% ( severe disability ) on 08/02/17; updated [place] Back Pain Disability Scale score: 68 on 08/02/17; initial Neck Disability Index: 68% on 08/02/17. 13[place] Back Pain Disability Index: 49 (with 1 unanswered question) and Oswestry Disability Questionnaire: 38% moderate disability on 10/03/2011 14[place]swestry Disability Questionnaire: 46% (severe disability) and [place] Back Pain Disability Scale: 47 on 05/03/2011 15Initial [place] Back Pain Disability Scale: 82 and Oswestry [...] MD. 13 cm ofrectal mucosa excised. At [facility] 18On 02/09/23 underwent Delorme procedure for full thickness rectal prolapse by Loulou Herring MD, FACS, FASCRS at [facility] with resection of approximately 13 cm of [...] fusion with allograft bone wedge and anterior [place] plate and screws; by Meir San M.D. at [facility] 25ACE score: 6 on 08/02/17 Social History Social History Type Response Smoking Status Former smoker; Stop ed at age: 42; entered on: 01/19/15 Sex Sex Representation Female (finding) Radiology * Event Display: Ultrasound Miscellaneous Authored Date: * Event Display: MRI Head, Non- BH Authored Date: * Event Display: MRI Neck, Non- Authored Date: Patient Care team information Care Team Personnel Name: Leonardo Lopez RN Position: S RN Member Role: Primary Care Nurse Name: Hilton Patino MD Position: [facility] Physician - Primary Care Member Role: PCP Address: [address] [place] [address]- [place] Tele[employer]: Name: Pauline Rivers MD, Fede Smith Position: [facility] Anesthesiology MD Member Role: [employer] Consulting Physician Address: [address] [place] [address]- Telecom: Care Team Related Persons Name: MANUEL CHAVEZ Insurance Providers Guarantor name: ANA CHAVEZ Health Plan Information #: 1 Payer: MEDICARE PART B OUTPT Member Number: NA Policy Number: NA Group Number: NA Health Plan Information #: 2 Payer: MEDEX Member Number: NA Policy Number: NA Group Number: NA
--- OUTSIDE RECORDS SUMMARY | 2024-12-23 15:23 | XMS_ITS | Clinical Summary ---
Author Organization [facility] [address] [facility] Address [address] [place] [address] Phone Care Team Providers Care Ultrasound Technol Name Role Phone Hilton Rossi MD Primary Care Provider [phone] Allergies Active Allergy Reactions Criticality Noted Date Comments Allerg Xt,D.Farinae-D.Pteronys 09/09/2024 Egg Derived Headache 11/29/2010 Milk Containing Products (Dairy) Diarrhea 11/29/2010 Milk Protein Hydrolysates Other Other 09/09/2024 Medications lidocaine/me-preethi /menthol/camph (CBD-KINGS WITH LIDOCAINE TOP) CBD oil, Refills 0, Maintenance, 11/18/18 11:16:42 EST, Compound 11/18/19 19 Active ketoconazole (NIZORAL) 2 % shampoo LATHER INTO AFFECTED AREAS ON SCALP AND FACE EVERY DAY FOR 1-2 WEEKS, THEN USE 2-3 TIMES A WEEK FOR MAINTENANCE Active clonazePAM (KlonoPIN) 1 mg tablet Take 1 tablet (1 mg total) by mouth. 04/21/20 24 Active aspirin 81 mg chewable tablet Chew 1 tablet (81 mg total). 05/25/20 20 Active naltrexone 1.5 mg capsule 1.5 mg. 01/04/20 24 Active liothyronine (CYTOMEL) 5 mcg tablet TAKE 1 TABLET BY MOUTH EVERY MORNING AND 1 EVERY EVENING Active docusate sodium (Colace) 100 mg capsule Take 1 capsule (100 mg total) by mouth. 02/11/20 23 Active topiramate (TOPAMAX) 200 mg tablet Take [...] each day. Active miSOPROStoL (CYTOTEC) 200 mcg tabletIndication s:Irritable bowel syndrome with both constipation and diarrhea Take 1 tablet (200 mcg total) by mouth 4 (four) times a day. 120 each 5 09/10/20 24 025 Active lubiprostone (AMITIZA) 24 mcg capsuleIndicatio ns:Irritable bowel syndrome with both constipation and diarrhea Take 1 capsule (24 mcg total) by mouth 2 (two) times a day. 60 capsule 3 12/09/19 25 Active lubiprostone (AMITIZA) 24 mcg capsule Take 1 capsule (24 mcg total) by mouth 2 times daily. 05/26/20 19 025 Discontin ued(Reord er) lubiprostone (AMITIZA) 24 mcg capsuleIndicatio ns:Irritable bowel syndrome with both constipation and diarrhea Take 1 capsule (24 mcg total) by mouth 2 (two) times a day. 60 capsule 3 12/08/19 25 025 Discontin ued(Reord er) Active Problems Problem Noted Date Diagnosed Date Rectal prolapse 09/04/2024 Irritable bowel syndrome (IBS) 09/04/2024 Hx of colonic polyp 09/04/2024 Hyperlipidemia Hypothyroid Osteoarthritis Surgical History Surgery Date Site/Laterality Comments HYSTERECTOMY DELORME PROCEDURE FOR RECTAL PROLAPSE Medical History Medical History Date Comments Hyperlipidemia Hypothyroid Osteoarthritis Social History Tobacco Use Types Packs/Day Years Used Date Smoking Tobacco: Former Cigarettes Tobacco Cessation:Counseling Given: Not Answered Alcohol Use Standard Drinks/Week Comments Not Currently 0 (1 standard drink = 0.6 oz pur e alcohol) none Comments Unknown Sex and Gender Information Value Date Recorded Sex Assigned at Not on file Legal Sex Female 3:43 AM EST Gender Identity Not on file Sexual Orientation Not on file Obstetrics History Last Filed [...] 08/16, 05/19/2018, Additional history exists Pneumococcal Vaccine: 50+ Years Completed 06/11/2020, 05/19/2018, 07/13/2017, Additional history [...] patient's age to complete this topic Meningococcal B Vacine Aged Out No lo nger eligible based on patient's age to complete this topic RSV Immunization Patients Under 20 months Aged Out No longer eligible based on patient's age to complete this topic Varicella Vaccines Aged Out No longer eligible based on patient's age to complete this topic Insurance MEDICARE [employer] Care Teams Ultrasound Technol Relationship Specialty Start Date End Date Hilton Rossi MD [address] [place] [id number] PCP - General Internal Medicine 08/07/24
== END 2024-12-23 13:30 | disposition home or self-care (01) ==
LOC: HO.HCS 12:50
PROVIDERS: PCP Internal Medicine; Visit Provider Internal Medicine
DX: I25.10 Atherosclerotic heart disease of native coronary artery without angina pectoris (principal); E78.5 Hyperlipidemia, unspecified
CPT/HCPCS: 99214

== ENCOUNTER → 2024-12-23 12:49 | Outpatient (BNVA) | payer MEDICARE, SELFPAY | PROVIDERS: PCP Internal Medicine; Visit Provider Internal Medicine | DX: I25.10 Atherosclerotic heart disease of native coronary artery without angina pectoris (principal); E78.5 Hyperlipidemia, unspecified | CPT/HCPCS: 99212 ==

== ENCOUNTER 2025-02-06 10:00 | Outpatient (RCR) | payer MEDICARE, SELFPAY | END 2025-03-13 06:35 | disposition home or self-care (01) | LOC: HO.CR 10:00 | PROVIDERS: PCP Internal Medicine; Visit Provider Internal Medicine | DX: Z95.5 Presence of coronary angioplasty implant and graft (principal) | CPT/HCPCS: 93798 ==

== ENCOUNTER 2025-05-14 15:04 | Outpatient (AMB) | payer MEDICARE, SELFPAY ==
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
--- OUTSIDE RECORDS SUMMARY | 2025-05-14 15:11 | XMS_ITS | Clinical Summary ---
Author Organization [facility] [address] [facility] Address [address] [place] [address] Phone Care Team Providers Care Semiconductor Wafers Saw Operator Name Role Phone Hilton Rossi MD Primary Care Provider Allergies Active Allergy Reactions Criticality Noted Date Comments Allerg Xt,D.Farinae-D.Pteronys 09/09/2024 Egg Derived Headache 11/29/2010 Milk Containing Products (Dairy) Diarrhea 11/29/2010 Milk Protein Hydrolysates Other Other 09/09/2024 Medications lidocaine/me-sa l/menthol/camph (CBD-KINGS WITH LIDOCAINE TOP) CBD oil, Refills [...] each day. Active miSOPROStoL (CYTOTEC) 200 mcg tablet TAKE ONE TABLET BY MOUTH FOUR TIMES A DAY 120 tablet 5 05/14/20 25 Active lubiprostone (AMITIZA) 24 mcg capsuleIndicati ons:Irritable bowel syndrome with both constipation and diarrhea TAKE ONE CAPSULE BY MOUTH TWICE A DAY 60 capsule 05/14/20 25 Active lubiprostone (AMITIZA) 24 mcg capsuleIndicati ons:Irritable bowel syndrome with both constipation and diarrhea TAKE ONE CAPSULE BY MOUTH TWICE A DAY 60 capsule 04/14/20 25 025 Discontinued Active Problems Problem Noted Date Diagnosed Date Rectal prolapse 09/04/2024 Irritable bowel syndrome (IBS) 09/04/2024 Assessment & Plan (04/21/2025 1:22 PM EDT): 74-year-old female with longstanding history of the irritable bowel syndrome presenting for routine follow-up. Overall she is doing very well with her current medication profile, diet and supplements. She understands the complicating nature of her issue given both diarrhea alternating with constipation. I spent time reassuring her that she is managing things well. She had no alarm symptoms. We did review her recent endoscopic evaluations. In terms of small bowel testing, we discussed the pros and cons of SIBO testing. At this juncture she would like to go forward with that and appropriate arrangements will be made. 1. Continue current medication profile. 2. Continue current diet and nutrition status. 3. Continue current supplementation with [id number] intervention. 4. Will arrange for SIBO testing. medical staff coordinator did review with patient the process. 5. Further recommendations based on SIBO testing. 6. The patient was instructed to contact me should he develop any new issues or concerns. Hx of colonic polyp 09/04/2024 Hyperlipidemia Hypothyroid Osteoarthritis Encounters Date Type Department Care Team Description 04/24/2025 Telephone Gastroenterology - [address] [place] [address] Pardeep Pelletier MD 04/21/2025 1:00 PM EDT Office Visit Gastroenterology - [address] [address] Pardeep Pelletier MD Irritable bowel syndrome with both constipation and diarrhea (Primary Dx) 03/16/2025 Telephone Gastroenterology - [address] [address] Jason Mccoy MD from Last 3 Months Surgical History Surgery Date Site/Laterality Comments HYSTERECTOMY DELORME PROCEDURE FOR RECTAL PROLAPSE COLONOSCOPY 01/19/2023 polyp, osis--5yr recall COLONOSCOPY 09/03/2015 negative 10yr recall INSERT STENT CARDIAC DVC Medical History Medical History Date Comments Hyperlipidemia Hypothyroid Osteoarthritis Social History Tobacco Use Types Packs/Day Years Used Date Smoking Tobacco: Former Cigarettes Q uit: 04/21/1993 Smokeless Tobacco: Former Tobacco Cessation:Counseling Given: Not Answered Alcohol Use [...] - Inhaled Oxygen Concentration - - Weight 54.1 kg (119 lb 3.2 oz) 04/21/2025 1:02 P M EDT Height 162.6 cm (5' 4 ) 04/21/2025 1:02 PM EDT Body Mass Index 20.46 04/21/2025 1:02 PM EDT Plan of Treatment Health Maintenance Due Date Last Done Comments Breast Cancer Screening 1950 Hepatitis A Vaccines (1 of 2 - Risk 2-dose series) 1971 Cholesterol Screening (Lipid Panel) 11/13/2023 Falls Risk Assessment 11/13/2023 Hepatitis C Screening 11/13/2023 Medicare Annual Wellness Visit 11/13/2023 Osteoporosis Screening (Bone Density Screening) 11/13/2023 Social Influencers of Health Screening 11/13/2023 COVID-19 Vaccine ( season) 2024 08/26/2022, 05/30/2022, 09/27/2021, Additional history exists Hypertension/CHF/CAD Annual BMP Blood Test 09/10/2024 Depression Screening 10/15/2024 Influenza Vaccine (#1) 2025 , 08/12/2022, 07/05/2021, Additional history exists DTaP,Tdap,and Td Vaccines (2 - Td or Tdap) 07/13/2027 07/13/2017 Colorectal Cancer Screening: Colonoscopy 04/20/2035 04/20/2025 Zoster Vaccines Completed 06/16/2019, 08/16, 05/19/2018, Additional history exists Pneumococcal Vaccine: 50+ Years Completed 06/11/2020, 05/19/2018, 07/13/2017, Additional history exists RSV Immunization Adult Patients Completed 03/01/2024 HIB Vaccines Aged Out No [...] age to complete this topic Meningococcal B Vaccine Aged Out No l onger eligible based on patient's age to complete this topic RSV Immunization Patients Under 20 months Aged Out No longer eligible based on patient's age to complete this topic Varicella Vaccines Aged Out No longer eligible based on patient's age to complete this topic Procedures Procedure Name Priority Date/Time Associated Diagnosis Comments COLONOSCOPY Routine 04/20/2025 3:51 PM EDT from Last 3 Months Results * COLONOSCOPY (04/20/2025 3:51 PM EDT) Anatomical Region Laterality Modality Endoscopy us Historical Provider GI~PROCEDURE ORDERABLES F inal Result from Last 3 Months Insurance MEDICARE [facility] Care Teams Semiconductor Wafers Saw Operator Relationship Specialty Start Date End Date Hilton Rossi MD [address] [place] [address] PCP - General Internal Medicine 08/07/24
--- OUTSIDE RECORDS SUMMARY | 2025-05-14 15:11 | XMS_ITS | Patient Health Record ---
Author Organization [facility] Address [address] [facility] [place] [address] Care Team Providers Care Property Consultant Name Role Phone Hilton Rossi MD Primary Care Provider Blaise Deleon Unavailable [phone] Allergies Allergen (clinical drug ingredient) Drug/Non Drug Allergy documented on EMR Reaction Allergy Type Onset Date Status Cortisone mood swings Drug Allergy Activ e Reason For Referral No Information Medications Medication SIG (Take, Route, Frequency, Duration) Notes Start Date End Date Status Oxazepam 10 MG 1 capsule as needed Orally Three times a day Active Methylcobalamin 1 MG Orally 12/16/2013 Active Topiramate 200 MG 1 tablet Orally Once a day Active Garlic 1000 MG Orally Activ e Biotin 5000 5 MG 1 capsule Orally Onc e a day Active Calcium 75 MG 1 tablet Orally Once a day Active Chromium 1 MG Orally Active Keysha-C 500-550 MG Orally A ctive Adrenal 200 MG Orally Activ e B12 Liquid Health Booster Active Flovent HFA 110 MCG/ACT 1 puff Inhalatio n Twice a day Active [place] Thyroid 30 MG 1 tablet Orally Once a day Active Pravastatin Sodium 40 MG 1 tablet Orally Once a day Active Problems Problem Type SNOMED Code ICD Code Onset Dates Problem Status W/U Status Risk Notes Problem Arthralgia (03997293) Arthralgia (719.40) Active confirmed Problem Disorder of joint of ankle and/or foot (849491911) Arthritis - Degenerative (719.97) Active confirmed Problem Neuralgia - Neuritis (729.2) Active confirmed Problem Tarsal tunnel syndrome (85898226) Tarsal Tunnel Syndrome (355.5) Active confirmed Plan Of Treatment No Information Insurance Providers Payer Name Payer Address Payer Phone Subscriber Number Group Number Insured Name Patient Relationship to Insured Coverage Start Date Coverage End Date [facility] [address] [place] [address] [id number] Maggy Marinelli Self - patient is the insured Medical (General) History Medical History History ICD Code Anemia Anxiety Arthritis asthma Back,Hip,and Knee pain Cholesterol Fibromyalgia nerve disorder Neuropathy Scarlet fever Thyroid disorder Measles Mumps Chicken pox Joint implants/screws Surgical History Surgery Date(Month/Year) left total hip replacement 12/13/2010 C3-4 disc fusion 05/26/2009 right hand/ wrist surgery hysterectomy 2007
--- NOTE | 2025-05-14 15:26 | MHC.OFFVIS ---
Vital Signs 05/14/25 15:27 Height 5 ft 4 in Weight 113 lb BMI 19.4 BP 122/60 Blood Pressure Location Lt brachial Position Sitting Pulse 78 Pulse Source Monitor Intake Visit Reasons: 4 mth f/up Allergies naproxen Adverse Reaction (Unknown, Verified 09/05/23 11:25) Does not feel well Medication List - Last Reconciled 05/14/25 by Raghu Scott MD aspirin (Enteric Coated Aspirin) 81 mg PO DAILY atorvastatin (Lipitor) 40 mg PO QPM clonazepam 1 mg PO clopidogrel 75 mg PO DAILY fluticasone propionate 110 mcg/actuation inhalation liothyronine 5 mcg PO lubiprostone 24 mcg PO BID thyroid (pork) 15 mg PO QAM topiramate 50 mg PO BID topiramate 200 mg PO BID venlafaxine ER 150 mg PO DAILY venlafaxine ER 75 mg PO DAILY HPI Comments Details: Maggy returns for follow-up regarding coronary disease. To recall, in 2019, she was admitted for chest discomfort that felt like heaviness in the front of the chest. EKG showed T inversions across the anterior leads, but troponins were unremarkable. Then underwent cardiac catheterization showing significant proximal LAD disease. Underwent stenting of the same. Strong family history of cardiac disease. Her sister has had bypass surgery in her 40s. In a recent chest CT scan performed for lung nodule, there was reported coronary calcification and the patient was concerned. That led to further workup with a stress test which was abnormal and then diagnostic catheterization. She underwent stenting of the ramus. Since last seen, no new cardiac concerns. Clearly no angina. COUNT INCLUDES [facility] Medical History Atherosclerotic cardiovascular disease Other and unspecified hyperlipidemia Presence of stent in LAD coronary artery Surgical History History of cardiac catheterization (~05/24/20) History of total left hip replacement History of fusion of cervical spine History of partial hysterectomy History of hand surgery Family History (Updated 09/01/24 @ 11:08 by Linda Gonzalez) Father History of myocardial infarction Emphysema of lung Heart attack Mother Emphysema of lung History of myocardial infarction Heart attack Social History Patient Tobacco Use Status: Former Tobacco user Years Smoked: 22 Advance Directives Date on File: 07/16/20 Review of Systems Const Denies weakness ENT Denies dizziness Card Denies chest pain, Denies chest pain with activity, Denies syncope, Denies rapid heart rate, Denies pedal edema, Denies edema, Denies leg edema, Denies lightheadedness, Denies palpitations, Denies dyspnea, Denies dyspnea on exertion and Denies orthopnea Resp Denies cough, Denies dyspnea and Denies dyspnea on exertion GI Denies hematochezia and Denies change in stool character Musc Denies abnormal gait, Denies muscle cramps, Denies muscle weakness, Denies numbness, Denies radiating pain into limb and Denies tingling Neuro Denies abnormal gait, Denies dizziness, Denies syncope, Denies numbness, Denies tingling and Denies weakness Endo Denies palpitations Physical Exam Vital Signs: Last Vital Signs Pulse 78 05/14/25 15:27 BP 122/60 05/14/25 15:27 BMI result Body Mass Index 19.4 Const General: comfortable and no acute distress Orientation/consciousness: patient oriented x3 HEENT Other: Unremarkable Head: Yes normal to inspection Neck Neck: Yes normal visual inspection Chest Chest palpation & inspection: normal inspection of the chest Resp Auscultation: clear to auscultation bilaterally Cardio Palpation: normal PMI Heart sounds: S1 normal heart sound present, S2 normal heart sound present, no gallops, no murmurs and no rubs GI Palpation (GI): Soft to palpation Back/Spine/Pelvis Other: unremarkable Skin General skin exam: no rashes or lesions noted Neuro General: patient oriented x3 Extrem General: Yes normal to inspection Psych Mental Status: mental status grossly normal Assessment & Plan Assessment & Plan (1) Atherosclerotic cardiovascular disease: Code(s): I25.10 - Atherosclerotic heart disease of [place] coronary artery without angina pectoris Category: Medical (2) Other and unspecified hyperlipidemia: Code(s): E78.5 - Hyperlipidemia, unspecified Category: Medical Plan Cardiac catheterization from 05/2020 showed 90% stenosis in the proximal LAD, s/p WANG. Exercise stress echocardiogram 10/2024 was abnormal with chest discomfort, EKG changes and echocardiographic findings. Repeat cardiac catheterization from 11/2024-patent proximal LAD stent with mild InStent restenosis. Severe proximal ramus stenosis, status post PCI. Currently, she is stable and we will continue medical management. Continue aspirin and Plavix. She is on Atorvastatin 40 mg daily. Lipids are slightly higher than ideal. Last LDL 85 mg/dL. We can recheck. Possibly increase the dose as appropriate. Discussion Notes I emphasized the importance of continuing her exercise routine to manage her overall health. We also discussed the plan to recheck her cholesterol levels to determine if her atorvastatin dosage needs adjustment. Patient was informed and verbally consented to the use of an ambient scribe for clinic note documentation during this visit. Total time spent including review of data, counseling, documentation, coordination of care-32 minutes. Orders: Orders Lipid Panel Today E78.5 - Hyperlipidemia, unspecified Liver Panel Today E78.5 - Hyperlipidemia, unspecified, I25.10 - Atherosclerotic heart disease of [place] coronary artery without angina pectoris Patient Instructions: - report any change in your symptoms. - Continue your exercise routine to improve your health. - Maintain your current medications: aspirin, Plavix, and atorvastatin. - Schedule a follow-up cholesterol test to assess medication needs. Coding Level of Care Code Est Pt Level 4 (92034) Complex EM visit Add On G2211 Diagnoses Atherosclerotic cardiovascular disease I25.10 Other and unspecified hyperlipidemia E78.5
[2025-05-14 15:27] VITALS: BP 122/60; PULSE 78; BMI 19.4
== END 2025-05-14 15:47 | disposition home or self-care (01) ==
LOC: HO.HCS 15:04
PROVIDERS: PCP Internal Medicine; Visit Provider Internal Medicine
DX: I25.10 Atherosclerotic heart disease of native coronary artery without angina pectoris (principal); E78.5 Hyperlipidemia, unspecified
CPT/HCPCS: 99214; G2211

== ENCOUNTER → 2025-05-14 15:04 | Outpatient (BNVA) | payer MEDICARE, SELFPAY | PROVIDERS: PCP Internal Medicine; Visit Provider Internal Medicine | DX: I25.10 Atherosclerotic heart disease of native coronary artery without angina pectoris (principal); E78.5 Hyperlipidemia, unspecified | CPT/HCPCS: 99212 ==

== ENCOUNTER 2025-05-20 13:54 | Outpatient (AMB) | payer MEDICARE, SELFPAY ==
[2025-05-20 14:18] VITALS: BMI 20.1
--- NOTE | 2025-05-20 14:18 | A.OFFVIS_ITS ---
VS Expanded 05/20/25 14:18 Height 5 ft 4 in Weight 117 lb 4.575 oz BMI 20.1 Intake Visit Reasons: Hyperlipidemia, Allergies naproxen Adverse Reaction (Unknown, Verified 09/05/23 11:25) Does not feel well Nutrition Presentation Details: Pt presents for MNT for hyperlipidemia, atherosclerotic cardiovascular disease Pt reports having intolerance to gluten and thus tries to limit its consumption Pt reports choosing on and off lactose free foods Pt reports having 2-3 meals/day and 1-2 snacks working on choosing healthier options and choosing leaner protein foods food frequency fruits: 1-2/d ve/d dairy 2-3 /d fish 0 times/wk physical activity: ADL BS Monitoring Most Recent Diabetes Results: Cholesterol, (<200) 178 mg/dL 11/17/24 HDL Cholesterol, (>40) 76 mg/dL 11/17/24 Triglycerides, (<150) 86 mg/dL 11/17/24 Creatinine, (0.5-1.4) 0.90 mg/dL 11/17/24 BUN, (9-16) 18 mg/dL H 11/17/24 Sodium, (135-145) 140 mmol/L 11/17/24 Potassium, (3.3-5.1) 4.4 mmol/L 11/17/24 Chloride, (96-108) 114 mmol/L H 11/17/24 Carbon Dioxide, (22-29) 22 mmol/L 11/17/24 Calcium, (8.4-10.2) 9.1 mg/dL 11/17/24 AST, (5-31) 21 U/L 11/17/24 ALT, (0-31) 18 U/L 11/17/24 Total Protein, (6.5-8.0) 7.0 g/dL 11/17/24 Albumin, (3.5-5.0) 4.1 g/dL 11/17/24 PYC-Hznmmuu-Ku.Jeor Equation Height: 5 ft 4 in Weight: 117 lb Resting Metabolic Rate: 1030.93 Calculated Activity Level: Mild Activity Calories Needed to Maintain Weight: 1417.53 Diagnosis Nutrition problem #1: food nutri know defi (r/t fiber, MUFA) As related to (etiology) #1: diagnosis As evidenced by (sign/symptom) #1: knowledge deficit of diet [facility] Medical History Atherosclerotic cardiovascular disease Other and unspecified hyperlipidemia Presence of stent in LAD coronary artery Surgical History History of cardiac catheterization (~05/24/20) History of total left hip replacement History of fusion of cervical spine History of partial hysterectomy History of hand surgery Family History (Updated 09/01/24 @ 11:08 by Linda Gonzalez) Father History of myocardial infarction Emphysema of lung Heart attack Mother Emphysema of lung History of myocardial infarction Heart attack Social History Patient Tobacco Use Status: Former Tobacco user Years Smoked: 22 Advance Directives Date on File: 07/16/20 Assessment & Plan Assessment & Plan (1) Atherosclerotic cardiovascular disease: Code(s): I25.10 - Atherosclerotic heart disease of [place] coronary artery without angina pectoris Category: Medical Plan: Wt: 53 Kg ( 06/08 ) Est kcal needs as per MSJ: 1500 (40% carb, 30% protein/fat) Est fluid needs as per 25-30 ml/d: 1600 Est prot per day as per 1 g/kg bw: 60g Recommend fiber intake : 8-10 g per day and gradually increase to 25-28 g per day for women and 35-38 g for men or as tolerated Recommend sodium intake per day : less than 2000 mg Educated patient on: ( R = reviewed V = verbalizes understanding N/R = needs review N/A = not applicable * Food sources of carbohydrate, adequate serving sizes and its role in various health conditions: R V N/R * Differences between complex carbohydrates a simple carbohydrates, role of fiber in diet: R * Lean protein sources of foods: R * Differences between types of fats and role in diet (mono on saturated fat fatty acids, saturated fatty acids, trans fats): R * Food sources of sodium in salt and healthy modifications for heart health in kidney health: R V R/V * Vitamins and minerals: R V N/R * Healthy plate method concept: R R * Physical activity: Benefits a precaution: R V N/R Patient Instructions: Include sources of omega 3 fatty acid - fish: 3-4oz at least twice/wk Try ground flaxseed 1 tsp /day and gradually increase to 3 /d keep hydrated ,water with meals and snack Coding Level of Care Code Nutr Indiv Intake (25949) Diagnoses Atherosclerotic cardiovascular disease I25.10 Time Spent (min) 30
--- OUTSIDE RECORDS SUMMARY | 2025-05-20 14:24 | XMS_ITS | Clinical Summary ---
Author Organization [facility] [address] [facility] Address [address] [place] [address] Phone Care Team Providers Care Divemaster Name Role Phone Hilton Rossi MD Primary Care Provider [phone] Allergies Active Allergy Reactions Criticality Noted Date [...] A DAY 60 capsule 05/14/20 25 Active rifAXIMin (Xifaxan) 550 mg tabletIndicatio ns:Small intestinal bacterial overgrowth (SIBO) Take 1 tablet (550 mg total) by mouth 3 (three) times a day for 14 days. 42 tablet 05/18/20 25 025 Active lubiprostone (AMITIZA) 24 mcg capsuleIndicati ons:Irritable [...] nutrition status. 3. Continue current supplementation with [id number] intervention. 4. Will arrange for SIBO testing. junior staff accountant did review with patient the process. 5. Further recommendations based on SIBO testing. 6. The patient was instructed to contact me should he develop any new issues or concerns. Hx of colonic polyp 09/04/2024 Hyperlipidemia Hypothyroid Osteoarthritis Encounters Date Type Department Care Team Description 04/24/2025 Telephone Gastroenterology - [address] [place] [address] [address] Pardeep Pelletier MD 04/21/2025 1:00 PM EDT Office Visit Gastroenterology - [address] [facility] [address] [address] Pardeep Pelletier MD Irritable bowel syndrome with both constipation and diarrhea (Primary Dx) 03/16/2025 Telephone Gastroenterology - [address] [place] [address] [address] [address] Jason Mccoy MD from Last [...] Region Laterality Modality Endoscopy us Historical Provider MD DUFF~PROCEDURE ORDERABLES F inal Result from Last 3 Months Insurance MEDICARE [facility] Care Teams Divemaster Relationship Specialty Start Date End Date Hilton Rossi MD [address] [place] [id number] PCP - General Internal Medicine 08/07/24
--- OUTSIDE RECORDS SUMMARY | 2025-05-20 14:24 | XMS_ITS | Patient Health Record ---
[facility] Address [address] [facility] [place] [address] Care Team Providers Care Carpenter Assistant Name Role Phone Hilton Rossi MD Primary Care Provider Blaise Deleon Unavailable [phone] Allergies Allergen (clinical drug ingredient) Drug/Non Drug [...] puff Inhalatio n Twice a day Active [place] Thyroid 30 MG 1 tablet Orally Once a day Active Pravastatin Sodium 40 MG 1 tablet Orally Once a day Active Problems Problem Type SNOMED Code ICD Code Onset Dates Problem Status W/U Status Risk Notes Problem Arthralgia (72777509) Arthralgia (719.40) Active confirmed Problem Disorder of joint of ankle and/or foot (440814571) Arthritis - Degenerative (719.97) Active confirmed Problem Neuralgia - Neuritis (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
[2025-05-21 14:28] VITALS: BMI 20.1
== END 2025-05-20 14:48 | disposition home or self-care (01) ==
LOC: HO.ENCR 13:55
PROVIDERS: PCP Internal Medicine; Visit Provider Dietitian, Registered
DX: I25.10 Atherosclerotic heart disease of native coronary artery without angina pectoris (principal)

== ENCOUNTER → 2025-05-20 13:54 | Outpatient (BNVA) | payer MEDICARE, SELFPAY | PROVIDERS: PCP Internal Medicine; Visit Provider Dietitian, Registered | DX: I25.10 Atherosclerotic heart disease of native coronary artery without angina pectoris (principal) | CPT/HCPCS: 97802 ==